=== PATIENT | female | born 1990 | race Caucasian/White ===

== ENCOUNTER 2019-08-18 11:38 | Emergency (ER) | payer OTHER ==
[2019-08-18 11:52] VITALS: BMI 27.1
[2019-08-18 13:02] LABS: BASO % 0.9 % (0-2.0); EOS % 0.8 % (0-4.5); HEMATOCRIT 37.8 % (32.4-45.2); HEMOGLOBIN 12.6 GM/dL (10.7-15.3); LYMPH % 37.6 % (8-40); MCH 29.5 pg (25.7-33.7); MCHC 33.4 g/dl (32.0-36.0); MEAN CELL VOLUME 88.3 fl (80-96); MEAN PLT VOLUME 9.6 fl (7.5-11.1); MONO % 9.6 % (3.8-10.2); NEUT % 51.1 % (42.8-82.8); PLATELET COUNT 200 K/MM3 (134-434); RBC 4.28 M/mm3 (3.60-5.2); RDW 13.8 % (11.6-15.6); WHITE BLOOD COUNT 5.7 K/mm3 (4.0-10.0)
[2019-08-18] MEDS ORDERED: ACETAMINOPHEN 500 MG TABLET (FP) PO ONE (13:18)
--- NOTE | 2019-08-18 13:24 | PDOC ---
History of Present Illness - General Chief Complaint: Vaginal Bleeding Stated Complaint: 8 W PREG/VAG BLEEDING Time Seen by Provider: 08/18/19 12:14 History Source: Optical Brightener Maker Helper Used - History of Present Illness Initial Comments: 29 y/o F, A2, w/ no significant pmh, presents at 8 weeks with vaginal bleed of one day duration that began at 9 am this morning while pt was climbing stairs to work, accompanied with a 9/10 abdominal pain and cramping. Pt said that when the pain started she noticed excessive bleed with clots on her underwear. Currently, her pain has worsened since onset, with no exacerbating or improving factors. She denies any previous episodes of such bleeding during her current . As per pt, 3 years ago, she experienced 2 miscarriages, at 1 month gestation and 5 month gestation respectively. At the time, she was in [facility] and did not pursue any further work up for the miscarriages. Admits to chills, abdominal pain and vaginal bleed. Denies f/n/v/d /sob/chest pain/dysuria/vaginal discharge. 08/18/19 13:29 Is this a multiple visit Asthma Patient?: No Timing/Duration: 1/2 hour Severity: mild Modifying Factors: improves with: rest Associated Symptoms: reports: other Aspirin Received prior to arrival: Yes: no aspirin today Beta Alexis Contraindications(Core Measure): Yes: Not Prescribed Beta Alexis Given by EMS(Core Measure): No Beta Alexis Taken at Home(Core Measure): No Beta Alexis Not Indicated at this Time(Core Measure): No Past History - Travel Traveled outside of the country in the last 30 days: No Close contact w/someone who was outside of country & ill: No Do you know what country they traveled to?: [facility] - Past Medical History Allergies/Adverse Reactions: Allergies Allergy/AdvReac Type Severity Reaction Status Date / Time No Known Allergies Allergy Verified 08/18/19 11:52 Home Medications: Ambulatory Orders Cephalexin [Keflex] 500 mg PO BID #14 capsule 08/18/19 Anemia: No Asthma: No Cancer: No Cardiac Disorders: No COPD: No CHF: No Diabetes: No GI Disorders: No Disorders: No HTN: No Hypercholesterolemia: No Kidney Stones: No - Surgical History Abdominal Surgery: No Appendectomy: No Cardiac Surgery: No Cholecystectomy: No - Reproductive History LMP Normal: Yes (june 2019) Is Patient Now?: Yes (#): 4 Para: 1 Cervical CA: No Dysfunctional Uterine Bleeding: No Ectopic : No Endometrial CA: No Polycystic Ovaries: No Therapeutic (s) & number: No Tubal Ligation: No Spontaneous : 2 - Psycho Social/Smoking Cessation Hx Smoking History: Never smoked Are you using electronic cigarettes/vaping?: No Information on smoking cessation initiated: No Hx Alcohol Use: No Drug/Substance Use Hx: No Substance Use Type: None Review of Systems - Review of Systems Able to Perform ROS?: Yes Is the patient limited Argentine proficient: Yes Constitutional: Yes: Chills. No: Diaphoresis, Fever, Loss of Appetite, Night Sweats, Weakness Respiratory: No: Cough, Shortness of Breath, SOB with Exertion, Wheezing Cardiac (ROS): No: Chest Pain, Irregular Heart Rate, Lightheadedness ABD/GI: Yes: Abdominal cramping. No: Abdominal Distended : No: Dysuria, Discharge Musculoskeletal: No: Joint Swelling, Muscle Pain *Physical Exam - Vital Signs Last Vital Signs Temp Pulse Resp BP Pulse Ox 98 F 79 18 118/80 99 08/18/19 11:49 08/18/19 11:49 08/18/19 11:49 08/18/19 11:49 08/18/19 11:49 - Physical Exam General Appearance: Yes: Nourished, Mild Distress HEENT: positive: EOMI, EMMANUEL, Normal ENT Inspection, Normal Voice Neck: positive: Trachea midline, Normal Thyroid, Supple Respiratory/Chest: positive: Lungs Clear, Normal Breath Sounds Cardiovascular: positive: Regular Rhythm, Regular Rate Vascular Pulses: Dorsalis-Pedis (R): 2+, Doralis-Pedis (L): 2+ Female Pelvic Exam: positive: normal external exam, cervical os closed, vaginal bleeding Gastrointestinal/Abdominal: positive: Normal Bowel Sounds, Tender Musculoskeletal: positive: Normal Inspection ED Treatment Course - LABORATORY CBC & Chemistry Diagram: 08/18/19 12:45 08/18/19 12:45 - ADDITIONAL ORDERS Additional order review: 08/18/19 12:45 RBC 4.28 MCV 88.3 MCHC 33.4 RDW 13.8 MPV 9.6 Neutrophils % 51.1 Lymphocytes % 37.6 Monocytes % 9.6 Eosinophils % 0.8 Basophils % 0.9 Medical Decision Making - Medical Decision Making Assessment/Plan 29 y/o F A1, no pmh presents at 8 weeks gestation w/ 1st trimester vaginal bleed with abdominal pain and cramping of one day duration #1st Trimester vaginal bleed r/o ectopic preg vs vs Rh incompatibility Trans-Vaginal U/S ordered to better visualize cervical OS and status of preg Monitor Hb Pelvic exam for visualization of OS Hcg levels F/u Lab results #Abdominal pain/cramping Tylenol ordered monitor vitals #r/o UTI UA and UCx ordered #DVTppx FEN monitor lytes, no fluids at this time Dispo: monitor vitals, f/u US results and labs 08/18/19 13:46 Discharge - Discharge Information Problems reviewed: Yes Clinical Impression/Diagnosis: Vaginal bleeding Condition: Improved Disposition: HOME - Admission No - Additional Discharge Information Prescriptions: Cephalexin [Keflex] 500 mg PO BID #14 capsule - Follow up/Referral - Patient Discharge Instructions Patient Printed Discharge Instructions: DI for Vaginal Bleeding During Additional Instructions: You were seen in the ER for vaginal bleeding While you were in the hospital, we evaluated you with lab work, blood work, imaging including an ultrasound of your uterus. We found that there was a small collection of blood around your Uterus, which will require you to monitor and follow up with your DAY CARE DIRECTOR physician. In order to prevent worsening of this bleeding around your Uterus, please refrain from any sexual activities until otherwise advised by your DAY CARE DIRECTOR physician Please avoid strenuous activities including exercise, lifting weights, running, or exertion until otherwise advised by your DAY CARE DIRECTOR physician You were also found to have a UTI on your urine test To treat your UTI, please take the following medication Keflex 500 mg twice a day by mouth for 7 days Please follow up with your DAY CARE DIRECTOR tomorrow as scheduled and bring all your results and discharge papers to your scheduled visit. Please follow up with your primary care within 1 week We will provide you with a work note today. Please follow up with your DAY CARE DIRECTOR physician for additional work notes. Return to the Emergency room, if your experience vaginal bleeding where you are soaking through 2 or more pads for more than 2 hours consecutively. Also, return if you have any new, worsening, or concerning symptoms. Te vieron en la marie de emergencias por sangrado vaginal Mientras estuvo en el hospital, lo evaluamos con anlisis de laboratorio, anlisis de vanesa, imgenes que incluyeron un ultrasonido de celeste tero. Descubrimos que haba krystal pequea coleccin de vanesa alrededor de celeste tero, lo que requerir que controle y renato un seguimiento con celeste mdico obstetra / gineclogo. Para evitar el empeoramiento de martina sangrado alrededor de celeste tero, evite cualquier actividad sexual hasta que celeste mdico obstetra / gineclogo le indique lo contrario. Evite actividades extenuantes, shalom ejercicio, levantar pesas, correr o hacer ejercicio hasta que celeste mdico obstetra / gineclogo le indique lo contrario. Tambin se descubri que aryan krystal infeccin urinaria en celeste examen de orina Para tratar celeste infeccin urinaria, tome el siguiente medicamento Keflex 500 mg dos veces al da por va oral javier 7 diallo. Renato un seguimiento con celeste obstetra / gineclogo maana segn lo programado y traiga todos christiano resultados y documentos de pollo a celeste visita programada. Renato un seguimiento con celeste atencin primaria dentro de 1 semana Le proporcionaremos krystal nota de trabajo hoy. Renato un seguimiento con celeste mdico obstetra / gineclogo para obtener notas de trabajo adicionales. Regrese a la marie de emergencias, si experimenta sangrado vaginal en el que est empapando 2 o ms compresas javier ms de 2 horas consecutivas. Adems, regrese si tiene algn sntoma nuevo, que empeora o relacionado. Print Language: NAURUAN - Post Discharge Activity Work/Back to School Note: Back to Work
[2019-08-18 13:58] LABS: ALBUMIN 3.8 g/dl (3.4-5.0); BILIRUBIN,TOTAL 0.4 mg/dL (0.2-1); BLOOD UREA NITROGEN 5.8 mg/dL (7-18); CALCIUM 8.9 mg/dL (8.5-10.1); CREATININE 0.6 mg/dL (0.55-1.3); POTASSIUM 3.9 mmol/L (3.5-5.1); TOT PROT 6.8 g/dl (6.4-8.2)
--- NOTE | 2019-08-18 15:01 | PDOC ---
Documentation entered by Jr Caicedo SCRIBE, acting as scribe for Martin Westfall MD. Martin Westfall MD: This documentation has been prepared by the Sascha womack Nirvannie, SCRIBE, under my direction and personally reviewed by me in its entirety. I confirm that the documentation accurately reflects all work, treatment, procedures, and medical decision making performed by me. Attending Attestation - Resident Resident Name: AsafBrendon - ED Attending Attestation I have performed the following: I have examined & evaluated the patient, The case was reviewed & discussed with the resident, I agree w/resident's findings & plan, Exceptions are as noted - HPI HPI: 08/18/19 13:55 The patient is a 29 year old 8 week female A2 who presents to the emergency department with 1 day of vaginal bleeding with associated 9/10 cramping abdominal discomfort. As per patient, at approximately 9am she was climbing the stairs at work at which time she noticed her vaginal bleeding with few large clots, prompting her arrival to the ED. At this time, she reports resolution of bleeding and cramping. Has not established care, but had an appointment today. She denies recent fevers, headache or dizziness. She denies recent nausea, vomiting, diarrhea or constipation. She denies recent dysuria, frequency, urgency or hematuria. She denies recent chest pain or shortness of breath. Allergies: NKDA - Physicial Exam PE: 08/18/19 14:59 GENERAL: Awake, alert, and fully oriented, in no acute distress EYES: PERRLA, EOMI, sclera anicteric, conjunctiva clear ENT: Oropharynx clear without exudates. Moist mucosa NECK: Normal ROM, supple, no lymphadenopathy, JVD, or masses LUNGS: Breath sounds equal, clear to auscultation bilaterally. No wheezes, and no crackles HEART: Regular rate and rhythm, normal S1 and S2, no murmurs, rubs or gallops ABDOMEN: Soft, nontender, normoactive bowel sounds. No guarding, no rebound. No masses PELVIC: scant dark red blood in vault, no clots, os closed, no midline or adnexal ttp EXTREMITIES: Normal range of motion, no edema. No cords, erythema, or tenderness NEUROLOGICAL: Normal speech, cranial nerves intact, equal strength and sensation b/l SKIN: Warm, Dry, normal turgor, no rashes or lesions noted. - Medical Decision Making 08/18/19 15:00 29-year-old female currently 8 weeks presents emergency department with vaginal bleeding this morning as well as resolved midline cramping. Vitals within normal limits. Exam with scant blood in the vaginal vault, but no active bleeding and closed os. No tenderness to palpation. Plan for labs including beta hCG, type and screen, as well as urinalysis and transvaginal ultrasound. Will reassess 08/18/19 16:44 TVUS with small subchorionic hemorrhage and viable IUP REsults discussed with pt and her using Nethub hadoop admin Ben ( [id number]) Pt advised to refrain from intercourse/lifting/strenuous activity unless otherwise advised by her OB SHe has a f/u appt tomorrow - report and labs provided to pt Pt also with bacturia, thus will treat with keflex She has had no further bleeding in the ED, bleeding return precautions discussed with pt who expresses understanding I discussed the physical exam findings, ancillary test results and final diagnoses with the patient. I answered all of the patient's questions. The patient was satisfied with the care received and felt comfortable with the discharge plan and treatment plan. The patient will call their primary care physician within 24 hours to arrange follow-up and will return to the Emergency Department with any new, persistent or worsening symptoms.
[2019-08-18 15:30] LABS: EPI CELLS 13.7 /HPF (0-5/HPF); HYALINE CASTS 13 /lpf (0-8); URINE APPEARANCE CLOUDY; URINE BACTERIA 159.7 /hpf (NEGATIVE); URINE BILIRUBIN NEGATIVE (NEGATIVE); URINE COLOR YELLOW; URINE GLUCOSE (UA) NEGATIVE (NEGATIVE); URINE KETONE 3+ (NEGATIVE); URINE LEUK ESTERASE NEGATIVE (NEGATIVE); URINE NITRITE NEGATIVE (NEGATIVE); URINE PROTEIN 1+ (NEGATIVE); URINE UROBILINOGEN 0.2 mg/dL (0.2-1.0); URINE WBC 6 /hpf (0-5)
[2019-08-18 15:34] LABS: URINE RBC 2.4 /hpf (0-4)
[2019-08-18 15:57] VITALS: BP 110/73; PULSE 78; TEMP 98.5
== END 2019-08-18 17:07 | disposition home or self-care (01) ==
LOC: JER 11:38
DX: O26.891 Other specified pregnancy related conditions, first trimester (principal); Z3A.08 8 weeks gestation of pregnancy; N93.9 Abnormal uterine and vaginal bleeding, unspecified
CPT/HCPCS: 36415; 76817-TC; 80053; 81003; 84702; 85025; 86850; 86900; 86901; 87086; 99283-25

== ENCOUNTER 2019-09-20 10:14 | Emergency (ER) | payer OTHER ==
[2019-09-20 10:19] VITALS: TEMP 98.2; BMI 25.5
--- NOTE | 2019-09-20 10:41 | PDOC ---
History of Present Illness - General Chief Complaint: Vaginal Bleeding Stated Complaint: VAGINAL BLEEDING Time Seen by Provider: 09/20/19 10:40 - History of Present Illness Initial Comments: 09/20/19 10:41 Ms. Jaime Guardado is a 29 yo A2 female at 12 weeks 6 days gestation who presents to emergency department for evaluation of 2 day history of pelvic cramping in the midline with associated bleeding. Patient reports that starting Saturday she has had bleeding "every 15 minutes" associated with pain. Patient further endorses she filled most of a small bucket with blood. Patient thinks she appears pale and has had chills. Patient evaluated 08/18 in same ER and found to have IUP w/ small subchorionic hemorrhage. The patient denies chest pain, shortness of breath, headache and dizziness. Denies fever, nausea, vomit, diarrhea and constipation. Denies dysuria, frequency, urgency and hematuria. Past History - Past Medical History Allergies/Adverse Reactions: Allergies Allergy/AdvReac Type Severity Reaction Status Date / Time No Known Allergies Allergy Verified 09/20/19 10:19 Home Medications: Ambulatory Orders Cephalexin [Keflex] 500 mg PO BID #14 capsule 08/18/19 Anemia: No Asthma: No Cancer: No Cardiac Disorders: No COPD: No CHF: No Diabetes: No GI Disorders: No Disorders: No HTN: No Hypercholesterolemia: No Kidney Stones: No - Surgical History Abdominal Surgery: No Appendectomy: No Cardiac Surgery: No Cholecystectomy: No - Reproductive History (#): 4 Para: 1 Cervical CA: No Dysfunctional Uterine Bleeding: No Ectopic : No Endometrial CA: No Polycystic Ovaries: No Therapeutic (s) & number: No Tubal Ligation: No Spontaneous : 2 - Psycho Social/Smoking Cessation Hx Smoking History: Never smoked Hx Alcohol Use: No Drug/Substance Use Hx: No Substance Use Type: None Review of Systems - Review of Systems Comments:: 09/20/19 10:41 GENERAL/CONSTITUTIONAL: No fever or chills. No weakness. HEAD, EYES, EARS, NOSE AND THROAT: No change in vision. No ear pain or discharge. No sore throat. CARDIOVASCULAR: No chest pain or shortness of breath RESPIRATORY: No cough, wheezing, or hemoptysis. GASTROINTESTINAL: No nausea, vomiting, diarrhea or constipation. GENITOURINARY: +Pelvic pain, cramps, and bleeding as described. No dysuria, frequency, or change in urination. MUSCULOSKELETAL: No joint or muscle swelling or pain. No neck or back pain. SKIN: No rash NEUROLOGIC: No headache, vertigo, loss of consciousness, or change in strength/ sensation. ENDOCRINE: No increased thirst. No abnormal weight change HEMATOLOGIC/LYMPHATIC: No anemia, easy bleeding, or history of blood clots. ALLERGIC/IMMUNOLOGIC: No hives or skin allergy. *Physical Exam - Vital Signs Last Vital Signs Temp Pulse Resp BP Pulse Ox 98.2 F 123 H 18 118/91 99 09/20/19 10:16 09/20/19 10:16 09/20/19 10:16 09/20/19 10:16 09/20/19 10:16 - Physical Exam 09/20/19 10:41 GENERAL: Awake, alert, and fully oriented, in no acute distress HEAD: No signs of trauma, normocephalic, atraumatic EYES: PERRLA, EOMI, sclera anicteric, conjunctiva clear ENT: Auricles normal inspection, hearing grossly normal, nares patent, oropharynx clear without exudates. Moist mucosa NECK: Normal ROM, supple, no lymphadenopathy, JVD, or masses LUNGS: No distress, speaks full sentences, clear to auscultation bilaterally HEART: Regular rate and rhythm, normal S1 and S2, no murmurs, rubs or gallops, peripheral pulses normal and equal bilaterally. ABDOMEN: Soft, nontender, normoactive bowel sounds. No guarding, no rebound. No masses EXTREMITIES: Normal inspection, Normal range of motion, no edema. No clubbing or cyanosis. NEUROLOGICAL: Cranial nerves II through XII grossly intact. Normal speech, normal gait, no focal sensorimotor deficits SKIN: Warm, Dry, normal turgor, no rashes or lesions noted. VAGINAL: +Scant blood noted in vaginal vault. Small clot noted at cervical Os. No CMT, no adnexal tenderness. Os closed. ED Treatment Course - LABORATORY CBC & Chemistry Diagram: 09/20/19 11:35 09/20/19 11:35 Medical Decision Making - Medical Decision Making 09/20/19 12:39 Ms. Sandoval is a 29 yo female w/ pmh as described who presents for evaluation of bleeding in . Patient evaluated with labs as below as well as US. US revealed comforting HR at 171; Os closed; patient exam concerning for threatened . Hemoglobin stable. Discussed with MANAGER OF CASE who believe patient safe for discharge for outpatient follow-up at this time. Discussed return precautions as well as pelvic rest. Patient verbalized understanding and agreement. No concern for further acute process at this time. Urine too bloody to perform UA - no urinary complaints. Discharging to home. Laboratory Results - last 24 hr 09/20/19 09/20/19 09/20/19 11:35 11:35 11:40 WBC 5.5 RBC 4.59 Hgb 13.5 Hct 40.3 MCV 87.6 MCH 29.3 MCHC 33.4 RDW 14.3 Plt Count 223 MPV 9.4 Absolute Neuts (auto) 2.9 Neutrophils % 52.5 Lymphocytes % 36.9 Monocytes % 8.9 Eosinophils % 1.2 Basophils % 0.5 Nucleated RBC % 0 Sodium 136 Potassium 4.0 Chloride 103 Carbon Dioxide 25 Anion Gap 8 BUN 5.3 L Creatinine 0.6 Est GFR (CKD-EPI)AfAm 143.77 Est GFR (CKD-EPI)NonAf 124.04 Random Glucose 84 Calcium 9.0 Total Bilirubin 0.4 AST 16 ALT 18 Alkaline Phosphatase 79 Total Protein 7.9 Albumin 3.9 Beta HCG, Quant 79757.4 Urine Color Red Urine Appearance Cloudy Urine pH No Result Required. Ur Specific Sylvia No Result Required. Urine Protein No Result Required. Urine Glucose (UA) No Result Required. Urine Ketones No Result Required. Urine Blood No Result Required. Urine Nitrite No Result Required. Urine Bilirubin No Result Required. Urine Urobilinogen No Result Required. Ur Leukocyte Esterase No Result Required. Discharge - Discharge Information Problems reviewed: Yes Clinical Impression/Diagnosis: Threatened Disposition: HOME - Follow up/Referral Referrals: Trisha Palomares MD [Staff Physician] - - Patient Discharge Instructions Patient Printed Discharge Instructions: DI for Threatened Additional Instructions: You were evaluated today in the ER for your bleeding and pain. We performed labs and ultrasound and believe you are safe for discharge. Please follow-up with MANAGER OF CASE this week for further evaluation. Make sure to practice pelvic rest as discussed until advised otherwise by your MANAGER OF CASE. This means to not place anything in the vagina (including intercourse). Return to ER if any increase in pain or bleeding, fever, chills, or other concerning symptoms. Usted fue evaluado hoy en la marie de emergencias por celeste sangrado y dolor. Realizamos pruebas de laboratorio y ultrasonido y creemos que usted es seguro para el pollo. Renato un seguimiento con OB / QC TECH esta semana para krystal evaluacin adicional. Asegrese de practicar el descanso plvico shalom se discuti hasta que celeste obstetra / gineclogo le indique lo contrario. [place] significa no colocar nada en la vagina (incluidas las relaciones sexuales). Regrese a la marie de emergencias si aumenta el dolor o el sangrado, fiebre, escalofros u otros sntomas relacionados. Print Language: BULGARIAN - Post Discharge Activity
[2019-09-20] MEDS ORDERED: SODIUM CHLORIDE 1,000 ML IV STA (11:06)
[2019-09-20 11:57] LABS: BASO % 0.5 % (0-2.0); EOS % 1.2 % (0-4.5); HEMATOCRIT 40.3 % (32.4-45.2); HEMOGLOBIN 13.5 GM/dL (10.7-15.3); LYMPH % 36.9 % (8-40); MCH 29.3 pg (25.7-33.7); MCHC 33.4 g/dl (32.0-36.0); MEAN CELL VOLUME 87.6 fl (80-96); MEAN PLT VOLUME 9.4 fl (7.5-11.1); MONO % 8.9 % (3.8-10.2); NEUT % 52.5 % (42.8-82.8); PLATELET COUNT 223 K/MM3 (134-434); RBC 4.59 M/mm3 (3.60-5.2); RDW 14.3 % (11.6-15.6); WHITE BLOOD COUNT 5.5 K/mm3 (4.0-10.0)
[2019-09-20 12:01] LABS: URINE APPEARANCE CLOUDY; URINE COLOR RED
--- NOTE | 2019-09-20 12:07 | PDOC ---
Documentation entered by Nacho Cotto SCRIBE, acting as scribe for Uri Orellana MD. Uri Orellana MD: This documentation has been prepared by the Yadiel womack Daniel, SCRIBE, under my direction and personally reviewed by me in its entirety. I confirm that the documentation accurately reflects all work, treatment, procedures, and medical decision making performed by me. Attending Attestation - Resident Resident Name: ModeFranklin - ED Attending Attestation I have performed the following: I have examined & evaluated the patient, The case was reviewed & discussed with the resident, I agree w/resident's findings & plan, Exceptions are as noted - HPI HPI: 09/20/19 11:11 The patient is a 29 year old A2 female with no past medical history here today for evaluation of vaginal bleeding and suprapubic pain. The patient reports that she will be 13 weeks tomorrow. She states that since saturday (09/18/2019) she has had vaginal bleeding with midline suprapubic pain that she describes as cramping and spastic. She states that the bleeding and pain comes every 15 minutes. She also notes chills without fever. Pt was seen here last month for similar problem and was found to have a subchorionic hemorrhage. Patient denies headache, lightheadedness. Denies fever. Denies chest pain, shortness of breath. Denies nausea, vomiting, diarrhea. Allergies: NKA - Physicial Exam PE: 09/20/19 11:11 GENERAL: Awake, alert, and fully oriented, in no acute distress. HEAD: No signs of trauma EYES: PERRLA, EOMI, sclera anicteric, conjunctiva clear ENT: Auricles normal inspection, hearing grossly normal, nares patent, oropharynx clear without exudates. Moist mucosa NECK: Nontender, no stepoffs, Normal ROM, supple, no lymphadenopathy, JVD, or masses LUNGS: Breath sounds equal, clear to auscultation bilaterally. No wheezes, and no crackles HEART: Regular rate and rhythm, normal S1 and S2, no murmurs, rubs or gallops ABDOMEN: Soft, nontender, normoactive bowel sounds. No guarding, no rebound. No masses EXTREMITIES: Normal range of motion, no edema. No clubbing or cyanosis. No cords, erythema, or tenderness NEUROLOGICAL: Cranial nerves II through XII intact. 5/5 strength and sensation in all extremities, Normal speech, normal gait, normal cerebellar function SKIN: Warm, Dry, normal turgor, no rashes or lesions noted. : Os closed, + blood in vault, no CMT, no adnexal tenderness - Medical Decision Making 09/20/19 12:25 29 F with vaginal bleeding @ 17 weeks. Pt tachycardic but otherwise no significant signs of anemia. - Labs - US 09/20/19 12:55 US with viable IUP Labs wnl Hb stable since last visit Repeat vitals now completely normal, no tachycardia, BP stable Pt is well appearing, with normal vitals. Clinically stable for DC at this time. I discussed the physical exam findings, ancillary test results and final diagnoses with the patient. I answered all of the patient's questions. The patient was satisfied with the care received and felt comfortable with the discharge plan and treatment plan. The patient agrees to follow up with the primary care physician within 24-72 hours. Vital Signs - Vital Signs #1 Time: 12:56 Blood Pressure: 110/70 BP Location: Left Arm Blood Pressure Position: Sitting Pulse Rate: 82 Respiratory Rate: 18 O2 Sat by Pulse Oximetry (%): 100 Oxygen Delivery Method: Room Air
[2019-09-20 12:40] LABS: ALBUMIN 3.9 g/dl (3.4-5.0); BILIRUBIN,TOTAL 0.4 mg/dL (0.2-1); BLOOD UREA NITROGEN 5.3 mg/dL (7-18); CREATININE 0.6 mg/dL (0.55-1.3); TOT PROT 7.9 g/dl (6.4-8.2)
[2019-09-20 13:08] VITALS: BP 108/73; PULSE 89
[2019-09-20 13:47] LABS: URINE RBC >100 /hpf (0-4); URINE WBC 0-2 /hpf (0-5)
[2019-09-20 13:48] LABS: EPI CELLS FEW /HPF (0-5/HPF); URINE BACTERIA NONE SEEN /hpf (NEGATIVE)
== END 2019-09-20 13:08 | disposition home or self-care (01) ==
LOC: JER 10:14
PROC: 3E0337Z Introduction of Electrolytic and Water Balance Substance into Peripheral Vein, Percutaneous Approach (ICD-10-PCS; principal; 2019-09-20)
DX: O26.891 Other specified pregnancy related conditions, first trimester (principal); O20.0 Threatened abortion; Z3A.13 13 weeks gestation of pregnancy
CPT/HCPCS: 36415; 76801-TC; 80053; 81003; 84702; 85025; 86850; 86900; 86901; 87086; 96360; 99282-25; J7030

== ENCOUNTER 2020-02-23 10:30 | Inpatient (IN) | payer OTHER ==
[2020-02-23 12:52] LABS: BASO % 0.6 % (0-2.0); EOS % 0.4 % (0-4.5); HEMATOCRIT 36.5 % (32.4-45.2); HEMOGLOBIN 11.9 GM/dL (10.7-15.3); MCH 29.5 pg (25.7-33.7); MCHC 32.7 g/dl (32.0-36.0); MEAN CELL VOLUME 90.1 fl (80-96); MEAN PLT VOLUME 8.9 fl (7.5-11.1); MONO % 7.3 % (3.8-10.2); NEUT % 63.7 % (42.8-82.8); PLATELET COUNT 179 K/MM3 (134-434); RBC 4.05 M/mm3 (3.60-5.2); RDW 14.5 % (11.6-15.6); WHITE BLOOD COUNT 6.6 K/mm3 (4.0-10.0)
[2020-02-23] MEDS ORDERED: AMPICILLIN SODIUM 2 GM VIAL ONE (13:00)
[2020-02-23 13:10] LABS: INR 0.97 (0.83-1.09); PROTHROMBIN TIME (PATIENT) 11.5 SEC (9.7-13.0)
[2020-02-23 13:13] LABS: ACTIVATED PTT 25.8 SECONDS (25.2-36.5)
[2020-02-23] MEDS ORDERED: CITRIC ACID/SODIUM CITRATE 30 ML UNIT-DOSE CUP PO ONE (13:17)
[2020-02-23 13:18] LABS: BLOOD UREA NITROGEN 3.3 mg/dL (7-18); CREATININE 0.4 mg/dL (0.55-1.3); POTASSIUM 3.7 mmol/L (3.5-5.1)
[2020-02-23 13:19] VITALS: BMI 30.2
[2020-02-23] MEDS ORDERED: AMPICILLIN - 2 GM in SODIUM CHLORIDE 100 ML IVPB ONE (13:19)
--- NOTE | 2020-02-23 13:27 | HP ---
Past Medical History - Admission Chief Complaint: SROM History of Present Illness: 29yo @ 35.1wks by LMP/sono, ELAINE 03/27/20 who presented to the office today, noting LOF since 2AM. No intercourse, no bleeding. No ctx. +FM SSE: noted +pooling, nitrazine. Cervix was long/closed Preg c/b: Prior C/S, for planned repeat with BTL History Source: Patient Limitations to Obtaining History: No Limitations - Past Medical History ...: 4 ...Para: 1 ...Term: 1 ...: 0 ...Spon : 2 ...Induced : 0 ...Living Children: 1 ...Multiple Gestation: 0 ...LMP: 06/21/19 ... Weeks Gestation by Dates: 35.2 ...EDC by Dates: 03/27/20 ...EDC by Sono: 03/27/20 Heme/Onc: Yes: Anemia - Past Surgical History Past Surgical History: Yes: Hx Myomectomy: No Hx Transabdominal Cerclage: No - Smoking History Smoking history: Never smoked Have you smoked in the past 12 months: No - Alcohol/Substance Use Hx Alcohol Use: No Home Medications - Allergies Allergies/Adverse Reactions: Allergies Allergy/AdvReac Type Severity Reaction Status Date / Time No Known Drug Allergies AdvReac Verified 02/23/20 14:10 Cod Fish AdvReac Intermediate Uncoded 02/23/20 12:11 - Home Medications Home Medications: Ambulatory Orders Pnv No.95/Ferrous Fum/Folic AC [ Formula] 1 each PO DAILY 02/23/20 Review of Systems - Review of Systems Constitutional: reports: No Symptoms Cardiovascular: reports: No Symptoms Respiratory: reports: No Symptoms Physical Exam - Maternity Vital Signs: Vital Signs Temperature 98.1 F 02/23/20 13:10 Pulse Rate 90 02/23/20 13:10 Respiratory Rate 18 02/23/20 13:10 Blood Pressure 120/85 02/23/20 13:10 O2 Sat by Pulse Oximetry (%) - Abdominal Exam/OB Number of Fetuses: Single Presentation: Vertex Contractions: No Monitor Mode: External Heart Rate Location: [facility] Category: I Accelerations: Non-Uniform Decelerations: None - Vaginal Exam/OB Vaginal Bleeding: No Speculum Exam: Yes (+pooling, +nitrazine) Dilatation (cm): 0 Effacement (%): 0 Amniotic Membrane Status: Ruptured Nitrazine Test: Positive Amniotic Fluid: Yes: Clear Presentation: Vertex/Position Station: -3 - Physical Exam Edema: No - Labs Lab Results: CBC, BMP 02/23/20 12:38 02/23/20 12:38 Imaging - Results Ultrasound: Report Reviewed Problem List - Problems (1) premature rupture of membranes (PPROM) delivered, current hospitalization Code(s): O42.919 - PRETRM JOSELYN ROM, UNSP TIME BETW RUPT AND ONST LABR, UNSP TRI Assessment/Plan 29yo @ 35.2wks with PPROM, prior C/S Admit to L&D NPO, IVFs Admission labs, COVID labs Cat I tracing Amp for GBS unknown Unfavorable cervix, does not want trial of labor. Plan for RLTCS. Desires BTL, aware of risk/permanent nature. Risks reviewed. Consents signed. Sage Marks MD
[2020-02-23] MEDS ORDERED: ELECTROLYTE-148 SOLN 1,000 ML IV SCH ×2 (13:30)
[2020-02-23] MEDS ORDERED: morphine SULFATE/PF 0.5 MG/ML (2cc Syringe - QUVA) ONE (16:28)
[2020-02-23] MEDS ORDERED: SODIUM CHLORIDE 0.9% P/F 10 ML VIAL IJ ONE (16:30)
[2020-02-23] MEDS ORDERED: ceFAZolin SODIUM 1 GM VIAL ONE (16:30)
[2020-02-23] MEDS ORDERED: OXYTOCIN 10 UNITS/ML VIAL ONE (17:10)
[2020-02-23] MEDS ORDERED: ACETAMINOPHEN 325 MG TABLET (FP) PO PRN (17:13)
[2020-02-23] MEDS ORDERED: ONDANSETRON 4 MG/2 ML VIAL IVPUSH PRN (17:14)
[2020-02-23] MEDS ORDERED: METHYLERGONOVINE MALEATE 0.2 MG/1 ML AMP IM PRN (18:05)
[2020-02-23] MEDS ORDERED: oxyCODONE HCL 5 MG TABLET PO PRN (18:05)
--- NOTE | 2020-02-23 18:05 | OP ---
Operative Note - Note: Operative Date: 02/23/20 Pre-Operative Diagnosis: 35 week , PPROM, Prior C/S, Desires repeat C- Section, Desires Permanent Sterilization Operation: Repeat Low Transverse , Bilateral Tubal Ligation Findings: VMI, LOT presentation, body nuchal, no meconium. Apgars 9/9, Weight pending, Normal tubes and ovaries bilaterally Post-Operative Diagnosis: Same as Pre-op Surgeon: Carissa Marks Truss Builder: Jakub Rivers Anesthesia: Spinal Estimated Blood Loss (mls): 700 Drains, Volume Out (mls): 100 (clear urine) Operative Report Dictated: Yes
[2020-02-23] MEDS ORDERED: OXYTOCIN 20 UNITS in 0.9% NS 20 UNIT/1,000 ML INFUS.BAG IV SCH (18:15)
[2020-02-23] MEDS: IBUPROFEN 800 MG/8 ML IJ IVPB PRN (22:26)
[2020-02-24] MEDS ORDERED: IBUPROFEN 600 MG TABLET (FP) PO PRN (00:01)
[2020-02-24] MEDS: IBUPROFEN 800 MG/8 ML IJ IVPB PRN (05:42)
[2020-02-24 08:34] LABS: POC NITRAZINE POS
[2020-02-24 08:45] LABS: BASO % 0.4 % (0-2.0); EOS % 0.6 % (0-4.5); HEMOGLOBIN 11.2 GM/dL (10.7-15.3); LYMPH % 16.2 % (8-40); MCH 30.2 pg (25.7-33.7); MEAN CELL VOLUME 91.7 fl (80-96); MEAN PLT VOLUME 9.1 fl (7.5-11.1); MONO % 8.8 % (3.8-10.2); PLATELET COUNT 170 K/MM3 (134-434); RBC 3.71 M/mm3 (3.60-5.2); RDW 14.7 % (11.6-15.6); WHITE BLOOD COUNT 8.5 K/mm3 (4.0-10.0)
[2020-02-24] MEDS: FERROUS SO4 325 MG TABLET (FP) PO SCH ×2 (09:31→17:27)
[2020-02-24] MEDS: PRENATAL VITAMINS W/ FOLIC ACID TABLET (FP) PO SCH (09:31)
--- NOTE | 2020-02-24 10:43 | PN ---
Post Progress Note - Subjective Subjective: c/o pain, scale 8/10. pt felt dizzy when she went to urinate 1st time after catheter removal Post Day: 1 Type of Delivery: Repeat C/S Vital Signs: Vital Signs Temperature 98.8 F 02/24/20 09:27 Pulse Rate 85 02/24/20 09:27 Respiratory Rate 19 02/24/20 09:27 Blood Pressure 107/70 02/24/20 09:27 O2 Sat by Pulse Oximetry (%) 96 02/24/20 09:00 Breast Exam: Yes: Soft (does not plan to BF ). No: Engorged Uterus: Yes: Fundus Firm, Fundus below umbilicus Incision: Yes: Dressing dry and intact. No: Oozing, Other Abdomen/GI: Yes: Abdomen soft, Tender, Tolerating PO (clear fluid ). No: Abdominal Distention, Passing flatus Lochia: Yes: Rubra Lochia, amount: Moderate Extremities: Yes: Calves non-tender Perineum: Yes: Intact Activity: Ambulating - Labs Labs: CBC WBC 8.5 K/mm3 (4.0-10.0) 02/24/20 07:50 RBC 3.71 M/mm3 (3.60-5.2) 02/24/20 07:50 Hgb 11.2 GM/dL (10.7-15.3) 02/24/20 07:50 Hct 34.0 % (32.4-45.2) 02/24/20 07:50 MCV 91.7 fl (80-96) 02/24/20 07:50 MCH 30.2 pg (25.7-33.7) 02/24/20 07:50 MCHC 33.0 g/dl (32.0-36.0) 02/24/20 07:50 RDW 14.7 % (11.6-15.6) 02/24/20 07:50 Plt Count 170 K/MM3 (134-434) 02/24/20 07:50 MPV 9.1 fl (7.5-11.1) 02/24/20 07:50 Absolute Neuts (auto) 6.3 K/mm3 (1.5-8.0) 02/24/20 07:50 Neutrophils % 74.0 % (42.8-82.8) 02/24/20 07:50 Lymphocytes % 16.2 % (8-40) D 02/24/20 07:50 Monocytes % 8.8 % (3.8-10.2) 02/24/20 07:50 Eosinophils % 0.6 % (0-4.5) 02/24/20 07:50 Basophils % 0.4 % (0-2.0) 02/24/20 07:50 Nucleated RBC % 0 % (0-0) 02/24/20 07:50 Other Findings, Remarks: rs cta , . urine output 1100 ml Problem List - Problems (1) examination following delivery Code(s): Z39.2 - ENCOUNTER FOR ROUTINE FOLLOW-UP Assessment/Plan pod #1 post Rc/s stable . ct po care , encourage po fluids, deep breathing, ambulation with assistance
[2020-02-24] MEDS: ACETAMINOPHEN 325 MG TABLET (FP) PO PRN ×2 (11:00→20:04)
[2020-02-24] MEDS ORDERED: BISACODYL 10 MG SUPP.RECT RC PRN (18:05)
[2020-02-24] MEDS: SIMETHICONE 80 MG TAB.CHEW (FP) PO PRN (20:04)
[2020-02-24] MEDS: IBUPROFEN 600 MG TABLET (FP) PO PRN (20:05)
--- NOTE | 2020-02-25 06:41 | PN ---
Post Progress Note - Subjective Subjective: Pain controlled. No fevers/chills. Ambulating. Baby in NICU Type of Delivery: Repeat C/S Vital Signs: Vital Signs Temperature 98.1 F 02/24/20 22:00 Pulse Rate 90 02/24/20 22:00 Respiratory Rate 18 02/24/20 22:00 Blood Pressure 114/70 02/24/20 22:00 O2 Sat by Pulse Oximetry (%) 96 02/24/20 21:00 Uterus: Yes: Fundus below umbilicus Incision: Yes: Dressing dry and intact, Sutures intact Abdomen/GI: Yes: Abdomen soft, Tolerating PO Lochia: Yes: Rubra Lochia, amount: Small Extremities: Yes: Calves non-tender Perineum: Yes: Intact - Labs Labs: CBC WBC 8.5 K/mm3 (4.0-10.0) 02/24/20 07:50 RBC 3.71 M/mm3 (3.60-5.2) 02/24/20 07:50 Hgb 11.2 GM/dL (10.7-15.3) 02/24/20 07:50 Hct 34.0 % (32.4-45.2) 02/24/20 07:50 MCV 91.7 fl (80-96) 02/24/20 07:50 MCH 30.2 pg (25.7-33.7) 02/24/20 07:50 MCHC 33.0 g/dl (32.0-36.0) 02/24/20 07:50 RDW 14.7 % (11.6-15.6) 02/24/20 07:50 Plt Count 170 K/MM3 (134-434) 02/24/20 07:50 MPV 9.1 fl (7.5-11.1) 02/24/20 07:50 Absolute Neuts (auto) 6.3 K/mm3 (1.5-8.0) 02/24/20 07:50 Neutrophils % 74.0 % (42.8-82.8) 02/24/20 07:50 Lymphocytes % 16.2 % (8-40) D 02/24/20 07:50 Monocytes % 8.8 % (3.8-10.2) 02/24/20 07:50 Eosinophils % 0.6 % (0-4.5) 02/24/20 07:50 Basophils % 0.4 % (0-2.0) 02/24/20 07:50 Nucleated RBC % 0 % (0-0) 02/24/20 07:50 Problem List - Problems (1) premature rupture of membranes (PPROM) delivered, current hospitalization Code(s): O42.919 - PRETRM JOSELYN ROM, UNSP TIME BETW RUPT AND ONST LABR, UNSP TRI Assessment/Plan 29yo s/p RLTCS, BTL POD#2 Routine PP care PO pain control Labs reviewed D/C to home POD#4 Sage Marks MD
--- NOTE | 2020-02-25 08:21 | OP ---
DATE OF OPERATION: 02/23/2020 PREOPERATIVE DIAGNOSES: A 35-week , prior section, rupture of membranes. POSTOPERATIVE DIAGNOSES: A 35-week , prior section, rupture of membranes. PROCEDURE: Repeat low transverse section, bilateral tubal ligation. ANESTHESIA: Spinal. SURGEON: Carissa Marks MD METAL MOLD DRESSER: JOSS Mitchell INTRAVENOUS FLUIDS: Per Anesthesia record. ESTIMATED BLOOD LOSS: 700. URINE OUTPUT: 100 mL of clear urine. FINDINGS: Viable male . LOT presentation. Body nuchal. Amniotic fluids. Apgars 9/9. Weight pending. Normal tubes and ovaries bilaterally. COMPLICATIONS: None. CONDITION: Stable to recovery room. NATURE OF PROCEDURE: After appropriate consents were signed, patient was taken to the operating room where spinal anesthesia was administered. The abdomen was then prepped and draped in a normal sterile fashion. A Angelo catheter was inserted prior to entry into the operating room. Anesthesia was confirmed. A timeout was confirmed, noting correct patient and procedure. A Pfannenstiel incision was made through the previous incision carried through the underlying layers until the fascia was nicked in the midline. Fascia was then extended laterally with the Kolb scissors. The inferior aspect of the fascia was lifted, tented upwards, and the rectus muscles were dissected off bluntly and with the Kolb scissors. Attention was then paid to the superior aspect, which was taken down in a similar fashion. The rectus muscles were bluntly in the midline. The peritoneum was entered bluntly. A bladder reflection was noted to be high on the uterus. It was taken down with the Metzenbaum scissors and gentle blunt dissection. Bladder blade was readjusted. The uterus was incised in a low transverse fashion. Clear amniotic fluid was noted. The 's head was delivered without difficulty as were remaining shoulder and body. The cord was clamped and cut. The was handed off to awaiting NICU staff. The placenta was removed manually. The uterus was cleared of all clot and debris. The uterus was then exteriorized. The hysterotomy was closed in a single layer with a 1-0 Vicryl. Good hemostasis. Attention was then paid to the bilateral tubal ligation. The patient's right fallopian tube was grasped with a Smithfield and carried through to the fimbriated edges until it was noted to be normal in the isthmic portion of the fallopian tube. The Smithfield was replaced. The tube was then suture ligated with a 0 plain suture and in a modified Virgilio fashion. The tubal stump was removed with the Metzenbaum. The tubal stumps were cauterized with the Bovie. Attention was then paid to the patient's left fallopian tube, which was ligated in a similar fashion. The inferior portion of the knot on the patient's left fallopian tube slipped, and the tube had to be re-suture ligated with a 0 plain to obtain hemostasis. Hysterotomy was reexamined and noted to have an area of bleeding on the patient's left hysterotomy. This was reapproximated with 0 Vicryl and a 2-0 chromic to achieve hemostasis. The uterus was then returned to the abdominal cavity. Tubal sites were inspected and noted to be hemostatic. The hysterotomy was examined and noted to be hemostatic. The muscle was then reapproximated with a 2-0 chromic. The fascia was closed with a 0 Vicryl. Subcutaneous layer was closed with a 0 Vicryl. The skin was closed with a 3-0 Biosyn. Bandages were then placed. All sponge, lap, and needle counts were correct x3. The patient did receive ampicillin prior to delivery, given prolonged rupture of membranes. She also received Ancef at the start of the . She was taken from the operating room to the recovery room in stable condition. MD FRANCISCO [id number]
[2020-02-25] MEDS: FERROUS SO4 325 MG TABLET (FP) PO SCH ×2 (09:16→16:58)
[2020-02-25] MEDS: IBUPROFEN 600 MG TABLET (FP) PO PRN ×2 (09:17→17:00)
[2020-02-25] MEDS: PRENATAL VITAMINS W/ FOLIC ACID TABLET (FP) PO SCH (09:17)
[2020-02-25] MEDS: ACETAMINOPHEN 325 MG TABLET (FP) PO PRN ×2 (09:17→17:00)
[2020-02-25] MEDS: SIMETHICONE 80 MG TAB.CHEW (FP) PO PRN ×2 (09:18→16:58)
[2020-02-26] MEDS: ACETAMINOPHEN 325 MG TABLET (FP) PO PRN ×2 (03:11→21:05)
[2020-02-26] MEDS: IBUPROFEN 600 MG TABLET (FP) PO PRN ×3 (03:12→18:37)
--- NOTE | 2020-02-26 06:30 | PN ---
Progress Note (short form) - Note Progress Note: pod 3 , doing well,has mild low abdominal cramps, passing gas CBC, BMP 02/24/20 07:50 02/23/20 12:38 Last Vital Signs Temp Pulse Resp BP Pulse Ox 98.5 F 85 18 116/75 98 02/25/20 22:00 02/25/20 22:00 02/25/20 22:00 02/25/20 22:00 02/25/20 21:00 abdomen soft, no distension, no cva BS present incison dry, clean no calf tenderness lochia mild plan ambu;late , cbc today for d/c home in am
[2020-02-26] MEDS: PRENATAL VITAMINS W/ FOLIC ACID TABLET (FP) PO SCH (09:00)
[2020-02-26] MEDS: SIMETHICONE 80 MG TAB.CHEW (FP) PO PRN (09:01)
[2020-02-26] MEDS: FERROUS SO4 325 MG TABLET (FP) PO SCH ×2 (09:02→18:37)
[2020-02-26 09:12] LABS: BASO % 0.5 % (0-2.0); EOS % 1.6 % (0-4.5); HEMATOCRIT 34.6 % (32.4-45.2); HEMOGLOBIN 11.4 GM/dL (10.7-15.3); LYMPH % 33.9 % (8-40); MCH 29.9 pg (25.7-33.7); MCHC 32.9 g/dl (32.0-36.0); MEAN CELL VOLUME 90.8 fl (80-96); MEAN PLT VOLUME 8.5 fl (7.5-11.1); MONO % 7.8 % (3.8-10.2); NEUT % 56.2 % (42.8-82.8); PLATELET COUNT 221 K/MM3 (134-434); RBC 3.82 M/mm3 (3.60-5.2); RDW 14.2 % (11.6-15.6); WHITE BLOOD COUNT 7.1 K/mm3 (4.0-10.0)
[2020-02-27 09:13] VITALS: BP 114/78; PULSE 76; TEMP 98.4
[2020-02-27] MEDS: PRENATAL VITAMINS W/ FOLIC ACID TABLET (FP) PO SCH (09:36)
[2020-02-27] MEDS: FERROUS SO4 325 MG TABLET (FP) PO SCH (09:36)
--- NOTE | 2020-03-02 17:53 | PATH ---
Surgical Pathology Report Patient Name: JONI CONROY [facility]. Rec. 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 PLACENTA: THIRD TRIMESTER PLACENTA. TRIVASCULAR CORD. MEMBRANES WITH NO DIAGNOSTIC ABNORMALITIES. B. RIGHT PORTION OF FALLOPIAN TUBE, RESECTION: COMPLETE CROSS SECTION OF THE FALLOPIAN TUBE LUMEN IDENTIFIED. C. LEFT PORTION OF FALLOPIAN TUBE, RESECTION: COMPLETE CROSS SECTION OF THE FALLOPIAN TUBE LUMEN IDENTIFIED. Electronically Signed Bg Cardenas M.D. Gross Description A. The specimen is received fresh labeled placenta and is a 349 gram, 13.5 x 13.0 x 2.8 cm. placenta with attached membranes and umbilical cord. The attached membranes are tong, translucent with focal opacities and insert marginally. The umbilical cord measures 28 cm. in length and averages 1.2 cm. in diameter. The cord inserts eccentrically, 3.5 cm. to the nearest margin. No true knots or strictures are identified. Cut surface of the umbilical cord reveals 3 vessels. The surface is morfin-blue with minimal fibrin deposition and appropriate caliber vessels. The maternal surface is red-brown with focal defects. Sectioning reveals red-brown, spongy parenchyma. No lesions are identified. Chief Business Development Officer sections are submitted in three cassettes as follows: 1- membrane rolls and umbilical cord; 2-3- full thickness sections of placenta. B. Received in formalin labeled "right portion of fallopian tube," is a 0.6 cm in length portion of fallopian tube. No fimbria are present. The outer surface is tong-lan and smooth. Sectioning reveals an unremarkable lumen. The specimen is bisected and entirely submitted in one cassette. C. Received in formalin labeled "left portion of fallopian tube," is a 0.6 cm in length portion of fallopian tube. No fimbria are present. The outer surface is tong-lan and smooth. Sectioning reveals an unremarkable lumen. The specimen is bisected and entirely submitted in one cassette. 02/26/2020 [facility]02/26/2020
== END 2020-02-27 10:00 | disposition home or self-care (01) | DRG 540 ==
LOC: JLDR 10:30 → UNDOADMIN 10:30 → JLDR 11:30 → J3W 19:45
PROVIDERS: ADMIT Obstetrics & Gynecology; ATTEND Obstetrics & Gynecology
PROC: 10D00Z1 Extraction of Products of Conception, Low, Open Approach (ICD-10-PCS; principal; 2020-02-23)
PROC: 0UL70ZZ Occlusion of Bilateral Fallopian Tubes, Open Approach (ICD-10-PCS; 2020-02-23)
DX: O60.23X0 Term delivery with preterm labor, third trimester, not applicable or unspecified (principal); O34.211 Maternal care for low transverse scar from previous cesarean delivery; Z3A.35 35 weeks gestation of pregnancy; Z37.0 Single live birth; Z30.2 Encounter for sterilization
CPT/HCPCS: 36415; 80048; 83986-QW; 85025; 85610; 85730; 86780; 86850; 86900; 86901; 87389; 88302-TC; 88307-TC; U0003